=== PATIENT | female | born 2000 | race Hispanic/Latino ===

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

== ENCOUNTER 2022-02-17 06:47 | Emergency (ER) | payer OTHER ==
[~2022-02-17] VITALS: Ht 129.5 cm; Wt 77.3 kg
[2022-02-17 07:16] VITALS: BP 142/100
[2022-02-17 07:30] VITALS: BP 127/96
[2022-02-17 07:56] LABS: HEMATOCRIT 29.6 % (37.0-47.0); HEMOGLOBIN 9.8 g/dl (12.0-16.0); IMMATURE GRANULOCYTES 0.6 % (0.0-5.0); MEAN CELL VOLUME 80.2 fL CALC (80.0-100.0); MEAN CORPUSCULAR HGB 26.6 pG CALC (26.0-32.0); MEAN CORPUSCULAR HGB CONC 33.1 g/dL CAL (32.0-36.0); NEUT# 6.67 thou/uL (2.00-7.15); RED BLOOD COUNT 3.69 mill/uL (4.20-5.60); RED CELL DISTRI WIDTH 14.8 % (11.5-15.5)
[2022-02-17 08:15] LABS: ALBUMIN 3.3 g/dL (3.2-5.0); ALKALINE PHOSPHATASE 158 u/l (38-126); ANION GAP 10 (6-22 (CALC)); BILIRUBIN, TOTAL 0.3 mg/dL (0.0-1.4); BUN 13 mg/dL (8-21); BUN/CREATININE RATIO 23 (12-20 (CALC)); CARBON DIOXIDE 20 mmol/l (22-30); CHLORIDE 110 mmol/l (95-108); CREATININE 0.6 mg/dL (0.5-1.0); GFR FOR AFR.AMER. > 60 ML/MIN (>=60 (CALC)); GFR OTHER RACES > 60 ML/MIN (>=60 (CALC)); SGOT/AST 37 u/l (14-36); SODIUM 136 mmol/l (137-146); TOTAL PROTEIN 6.5 g/dL (6.3-8.2)
[2022-02-17 08:17] LABS: POTASSIUM 3.8 mmol/l (3.5-5.1)
[2022-02-17 08:41] VITALS: BP 127/96
== END 2022-02-17 08:44 | disposition short-term general hospital (02) ==
LOC: ED 06:47
PROVIDERS: Family Medicine
DX: O46.93 Antepartum hemorrhage, unspecified, third trimester (principal); Z3A.30 30 weeks gestation of pregnancy

== ENCOUNTER 2024-05-20 10:04 | Emergency (ER) | payer OTHER ==
[~2024-05-20] VITALS: Ht 144.8 cm; Wt 61.0 kg
[2024-05-20 10:15] VITALS: BP 119/81
[2024-05-20 10:27] LABS: URINE BLOOD DIPSTICK Large (NEGATIVE); URINE GLUCOSE - DIPSTICK Negative (NEGATIVE); URINE KETONE 15 mg/dL (NEGATIVE); URINE NITRITE - DIPSTICK Negative (Negative); URINE PH 5.5 (4.5-8.0); URINE PROTEIN - DIPSTICK >=300 mg/dL (NEG-TRACE)
[2024-05-20 10:30] VITALS: BP 118/79
[2024-05-20 10:32] LABS: URINE COLOR Red; URINE LEUK ESTERASE Large (NEGATIVE)
[2024-05-20 10:36] LABS: URINE RBC TNTC RBC/hpf (0-5); URINE SQUAMOUS EPITHELIAL CELL FEW EPI/hpf (0-FEW)
[2024-05-20] MEDS ORDERED: cefTRIAXone SODIUM 2 GM in SODIUM CHLORIDE 0.9% 100 ML IV ONE (10:40)
[2024-05-20 10:41] LABS: BASO% 0.7 % (0-3); EOS% 4.1 % (0-8); HEMATOCRIT 35.8 % (37.0-47.0); HEMOGLOBIN 10.9 g/dl (12.0-16.0); IMMATURE GRANULOCYTES 0.2 % (0.0-5.0); LYMPH% 26.3 % (15-41); MEAN CELL VOLUME 75.7 fL CALC (80.0-100.0); MEAN CORPUSCULAR HGB CONC 30.4 g/dL CAL (32.0-36.0); MONO% 8.3 % (2-13); NEUT# 6.3 thou/uL (2.00-7.15); NEUT% 60.4 % (42-76); RED BLOOD COUNT 4.73 mill/uL (4.20-5.60)
[2024-05-20 11:00] VITALS: BP 119/79
[2024-05-20 11:07] LABS: ALBUMIN 4.3 g/dL (3.2-5.0); BILIRUBIN, TOTAL 0.4 mg/dL (0.02-1.3); CREATININE 0.7 mg/dL (0.5-1.0); POTASSIUM 4.5 mmol/l (3.5-5.1); TOTAL PROTEIN 7.6 g/dL (6.3-8.2)
[2024-05-20] MEDS ORDERED: CEPHALEXIN500 M1 PO (11:59)
[2024-05-20 12:02] VITALS: BP 119/79
[2024-05-23] MEDS ORDERED: MACROBID100 M1 PO (09:19)
== END 2024-05-20 12:04 | disposition home or self-care (01) ==
LOC: ED 10:04
PROVIDERS: Family Medicine
DX: N39.0 Urinary tract infection, site not specified (principal); B96.20 Unspecified Escherichia coli [E. coli] as the cause of diseases classified elsewhere
CPT/HCPCS: J0696